=== PATIENT | female | born 1990 | race Caucasian/White ===

== ENCOUNTER 2017-08-06 00:01 | Inpatient (IN) | payer OTHER ==
[~2017-08-06] VITALS: Ht 172.7 cm; Wt 89.8 kg
[2017-08-06] VITALS (13 sets, daily range): BP systolic 115–140; BP diastolic 58–82
[2017-08-06] MEDS ORDERED: PRENATAL TABLE1 EAC3 PO (00:39)
[2017-08-06] MEDS ORDERED: VITAMIN B122500 MCG PO (00:40)
[2017-08-06] MEDS ORDERED: IRON325 M1 PO (00:40)
[2017-08-06] MEDS ORDERED: MAGNESIUM OXID200 MG PO (00:41)
[2017-08-06 03:07] LABS: BASOPHIL (%) 0.1 % (0-1); EOSINOPHIL (%) 0.2 % (0-5); HEMATOCRIT 36.2 % (36.0-46.0); HEMOGLOBIN 12.9 G/DL (11.9-15.5); IMMATURE GRANULOCYTE (%) 0.4 % (0.0-0.7); LYMPHOCYTE (%) 16.7 % (15-42); LYMPHOCYTE COUNT 1.4 K/uL (1.0-2.8); MCH 30.9 PG (29.0-34.0); MCHC 35.6 G/DL (30.0-36.0); MCV 86.6 FL (83-99); MONOCYTE (%) 4.2 % (3-12); MONOCYTE COUNT 0.4 K/uL (0-0.8); NEUTROPHIL (%) 78.4 % (45-76); NEUTROPHIL COUNT 6.5 K/uL (1.8-6.4); PLATELET COUNT 159 K/uL (156-360); RBC DIS.WIDTH-CV 12.8 % (11.8-14.6); RBC DIS.WIDTH-SD 40.1 % (39-53); RED BLOOD COUNT 4.18 M/uL (3.80-5.20); WHITE BLOOD COUNT 8.3 K/uL (4.1-10.2)
[2017-08-07 06:11] LABS: BASOPHIL (%) 0.5 % (0-1); EOSINOPHIL COUNT 0.1 K/uL (0-0.3); HEMATOCRIT 37.4 % (36.0-46.0); HEMOGLOBIN 12.7 G/DL (11.9-15.5); IMMATURE GRANULOCYTE (%) 0.2 % (0.0-0.7); LYMPHOCYTE (%) 21.1 % (15-42); LYMPHOCYTE COUNT 1.7 K/uL (1.0-2.8); MCH 30.5 PG (29.0-34.0); MCV 89.9 FL (83-99); MONOCYTE (%) 4.4 % (3-12); MONOCYTE COUNT 0.4 K/uL (0-0.8); NEUTROPHIL (%) 72.8 % (45-76); NEUTROPHIL COUNT 5.9 K/uL (1.8-6.4); PLATELET COUNT 132 K/uL (156-360); RBC DIS.WIDTH-CV 13.3 % (11.8-14.6); RBC DIS.WIDTH-SD 43.6 % (39-53); RED BLOOD COUNT 4.16 M/uL (3.80-5.20)
[2017-08-07 08:00] VITALS: BP 118/70
[2017-08-07 16:24] VITALS: BP 124/77
[2017-08-08 07:25] VITALS: BP 125/74
== END 2017-08-08 15:46 | disposition home or self-care (01) | DRG 775 ==
LOC: LDRP-OP 00:01 → 2WEST 00:02 → LDRP-OP 09-09 07:06
PROVIDERS: Advanced Practice Midwife
PROC: 10E0XZZ Delivery of Products of Conception, External Approach (ICD-10-PCS; principal; 2017-08-06)
PROC: 10907ZC Drainage of Amniotic Fluid, Therapeutic from Products of Conception, Via Natural or Artificial Opening (ICD-10-PCS; 2017-08-06)
DX: O99.354 Diseases of the nervous system complicating childbirth (principal); Z37.0 Single live birth; G43.909 Migraine, unspecified, not intractable, without status migrainosus; O12.04 Gestational edema, complicating childbirth; Z3A.39 39 weeks gestation of pregnancy
CPT/HCPCS: 85025; J7120